=== PATIENT | male | born 1940 | race Caucasian/White ===

== ENCOUNTER → 2017-03-13 | Day surgery (SDC) | payer MEDICARE ==
[~2017-03-13] MED LIST: ALLERGY RELIE15.8 ML; AMLODIPINE-BEN1 EACH PO; NEURONTIN800 MG PO
--- NOTE | ~2017-03-13 | OR ---
Unit #: [id number] #: [id number] Patient: KEMAL WYLIE [id number] [address] [place], [place] [address] [id number] MR#: [id number] NAME: KEMAL WYLIE ROOM: Date of Procedure: 03/13/2017 Admission Date: 03/13/2017 Surgeon: Isaiah Aguirre M.D. : 1940 Attending Physician: Isaiah Aguirre M.D. Primary Care Physician: Milad Edgar M.D. OPERATIVE REPORT PREOPERATIVE DIAGNOSIS Left hydrocele. POSTOPERATIVE DIAGNOSIS Left hydrocele. PROCEDURE PERFORMED Left hydrocelectomy. ANESTHESIA General with local supplementation. INDICATIONS FOR PROCEDURE This 76-year-old man has a progressive and tense large left-sided hydrocele, for which he presents for elective treatment. DESCRIPTION OF PROCEDURE The patient was given preoperative Kefzol and satisfactory general anesthesia. In the supine position, the scrotum was shaved with clippers and widely prepped and draped. A modest transverse left hemiscrotal incision was sharply made and the thickened scrotal tissues divided with cautery to reveal a hydrocele sac that easily shelled out in all directions with digital dissection. It was gently eased through the incision which is fairly large enough for this tense mass. The mass was then incised with a 10 blade and straw yellow contents suctioned out. The hydrocele sac was then opened. FINDINGS The sac was markedly thickened. There were areas of inflammation within the sac possibly representing secretory lining. The testicle was difficult to palpate due to the thick rind caused by the hydrocele, but there were no obvious masses and it has been treated with an ultrasound. The hydrocele sac was then excised with a 1 cm margin from all testicular and cord structures. The sac would not strip out from the thickened rind, so the remaining portion of it was scarified by painting with a cautery until abnormal appearing lining cells were absent. Hemostasis was then meticulously obtained. The wound irrigated and the scrotal contents were placed in the original position minus hydrocele. The wound was closed with an inner running 2-0 chromic layer followed by an outer interrupted 3-0 vertical mattress layer interrupted. Triple antibiotic ointment was applied after injecting 10 mL of 0.5% Marcaine around the wound. Fluff gauze and scrotal support were applied. Unit #: [id number] #: [id number] Patient: KEMAL WYLIE The patient will be discharged with some [place] and routine instructions and follow up in 2 weeks. Dictated by... Efrain Mauro/kia TD: 03/13/2017 18:07 JOB #: [id number] OPERATIVE REPORT Page 1 of 1 X Isaiah Aguirre MD X PROCEDURE OPERATIVE NOTE
--- NOTE | ~2017-03-13 | EKG ---
[id number] NAME: KEMAL WYLIE MR#: [id number] Normal sinus rhythm. Normal ECG. Dictated by...
== END | disposition home or self-care (01) ==
LOC: CSUR 09:54
DX: N43.3 Hydrocele, unspecified (principal); N49.2 Inflammatory disorders of scrotum; I10 Essential (primary) hypertension; E66.9 Obesity, unspecified; F17.210 Nicotine dependence, cigarettes, uncomplicated; Z68.36 Body mass index [BMI] 36.0-36.9, adult; Z79.899 Other long term (current) drug therapy
CPT/HCPCS: 88302; 93005; J0690; J2250; J3010